=== PATIENT | male | born 1980 | race Caucasian/White ===

== ENCOUNTER 2021-10-17 09:27 | Outpatient (REF) | payer OTHER, SELFPAY | END 2021-10-17 09:28 | disposition home or self-care (01) | LOC: HO.HMGCLDS 09:27 | PROVIDERS: Visit Provider Internal Medicine | DX: Z20.822 Contact with and (suspected) exposure to COVID-19 (principal) | CPT/HCPCS: C9803; U0003; U0005 ==

== ENCOUNTER 2024-04-25 08:50 | Emergency (ER) | payer OTHER, SELFPAY ==
[2024-04-25 09:24] VITALS: BP 156/87; PULSE 103; RESP 18; TEMP 36.5; O2SAT 95; BMI 27.4
[2024-04-25 09:41] LABS: MANUAL DIFF FLAG NO
[2024-04-25 09:42] LABS: Basophils Percent Auto 0.2 % (0-2); Eosinophils Absolute Auto 0.1 X10*3/uL (0.0-0.4); Eosinophils Percent Auto 1.1 % (0-4); Hematocrit 35.3 % (42.0-52.0); Hemoglobin 12.3 g/dl (14.0-18.0); Imm Gran Abs Auto 0.05 X10*3/uL (0.00-0.03); Imm Gran Pct Auto 0.4 % (0.0-0.4); Lymphocytes Absolute Auto 1.2 X10*3/uL (1.2-4.9); Lymphocytes Percent Auto 9.6 % (20-40); Mean Corpuscular HGB Conc 34.8 g/dl (31.0-36.0); Mean Corpuscular Hemoglobin 29.1 pg (27.0-33.0); Mean Corpuscular Volume 83.6 fL (80.0-98.0); Mean Platelet Volume 9.1 fL (9.4-12.4); Monocytes Percent Auto 8.3 % (2-11); Neutrophils Percent Auto 80.4 % (45-73); Platelet Count 288 X10*3/uL (160-400); Red Blood Count 4.22 X10*6/uL (4.60-5.80); Red Cell Distribution Width 13.2 % (11.0-16.0); White Blood Count 12.4 X10*3/uL (4.8-10.8)
[2024-04-25 09:58] LABS: Lactic Acid 0.9 mmol/L (0.5-2.0)
[2024-04-25 10:12] LABS: Alanine Aminotransferase 9 U/L (0-40); Alkaline Phosphatase 66 U/L (39-117); Anion Gap 16 (12-20); Aspartate Amino Transferase 11 U/L (5-37); Bilirubin Total 0.7 mg/dL (0.0-1.0); Blood Urea Nitrogen 15 mg/dL (9-16); Calcium 9.3 mg/dL (8.4-10.2); Carbon Dioxide 29 mmol/L (22-29); Chloride 95 mmol/L (96-108); Creatinine Clr Calc Pharmacy 121.7; Estimated Glomerular Filt Rate > 60; Glucose Random 107 mg/dL (60-115); Potassium 2.7 mmol/L (3.3-5.1); Sodium 137 mmol/L (135-145); Total Protein 7.3 g/dL (6.5-8.0)
[2024-04-25] MEDS: Potassium Chloride ER 20 MEQ TAB.ER.PRT 60 MEQ PO (11:07)
[2024-04-25] MEDS: Tetracaine HCl/PF 0.5% Oph Sol 4 ML DROPS 3 DROP EYE-RIGHT (11:19)
[2024-04-25] MEDS: Fluorescein Sodium STRIP 1 STRIP EYE-LEFT (11:19)
[2024-04-25] MEDS: Lidocaine HCl 2 % MPF 5 ML VIAL INFILTRATI ×2 (11:19)
--- NOTE | 2024-04-25 11:24 | ED.GENADULT ---
HPI - General Adult General Chief complaint: Skin/Abscess/Foreign Body Stated complaint: armpit abscess ? Time Seen by Provider: 04/25/24 10:53 Source: patient Mode of arrival: ambulatory Limitations: no limitations History of Present Illness ED Provider: Héctor Pond PA-C HPI narrative: 42-year-old male history of recurrent abscesses and substance abuse presents to ED for right axilla pain. Patient states painful mass and erythema. Patient states have this before. Patient does not know why he has recurrent abscesses. Patient denies any IV drug injection to the site. Patient states he is clean. Patient states no chest pain or shortness of breath. Related Data Home Medications ?Medication ?Instructions ?Recorded ?Confirmed buprenorphine 2 mg-naloxone 0.5 mg 2 mg sublingual DAILY PRN 06/12/21 sublingual film buprenorphine 300 mg/1.5 mL mg subcut 06/12/21 solution,exten.rel.subcutaneous syringe (Sublocade) buprenorphine 4 mg-naloxone 1 mg 5 mg sublingual DAILY 06/12/21 sublingual film naloxone 4 mg/actuation nasal 1 spray intranasal ONCE PRN 06/12/21 spray (Narcan) Previous Rx's ?Medication ?Instructions ?Recorded cephalexin 500 mg capsule 500 mg PO TID #30 caps 06/12/21 meloxicam 15 mg tablet 15 mg PO DAILY #14 tabs 06/12/21 cephalexin 500 mg capsule 500 mg PO QID 7 days #28 caps 04/25/24 doxycycline hyclate 100 mg tablet 100 mg PO BID 7 days #14 tabs 04/25/24 ofloxacin 0.3 % eye drops See Rx Instructions ophthalmic 04/25/24 (eye) .COMPLEX #10 mL potassium chloride 20 mEq oral 20 meq PO DAILY 2 days #2 ea 04/25/24 packet Allergies Allergy/AdvReac Type Severity Reaction Status Date / Time No Known Allergies Allergy Verified 04/25/24 09:29 [No Known Allergies*] Review of Systems Review of Systems: Right axilla abscess Yes all other systems are reviewed and are negative PMFSH Social History Social History Advance Directives: No Advance Directives Information Provided: Yes Physical Exam ED Vital Signs: Vital Signs - 24 hr 04/25/24 09:24 04/25/24 14:18 Temperature 97.7 F 97.7 F Pulse Rate 103 H 103 H Respiratory Rate 18 18 Blood Pressure 156/87 H 156/87 H Pulse Oximetry 95 95 Oxygen Delivery Method Room Air Room Air BMI result Body Mass Index 27.4 Const General: cooperative, healthy appearing, comfortable, no acute distress, well developed, alert, awake and Physically active Orientation/consciousness: oriented to person, oriented to place, oriented to time and patient oriented x3 [facility] Head: Yes normal to inspection, Yes No palpable skull fracture present, Yes normocephalic and Yes atraumatic Eyes General: appearance normal, both eyes and all related structures Neck Neck: Yes normal visual inspection, Yes full ROM, Yes no lymphadenopathy, Yes no meningeal signs, Yes trachea midline, Yes supple, No anterior neck swelling and No tender Chest Other: erythematous and fluctuant. Resp Effort & Inspection: normal respiratory effort and able to speak in complete sentences Auscultation: clear to auscultation bilaterally Cardio Jugular venous distension: no JVD Heart sounds: S1 normal heart sound present and S2 normal heart sound present GI Inspection: Yes normal to inspection Palpation (GI): Soft to palpation, not firm, nontender, no guarding and not rigid General: No CVA tenderness and Yes no CVA tenderness Back/Spine/Pelvis Back: no CVA tenderness, No CVA tenderness and No back tenderness Skin General skin exam: no rashes or lesions noted, elasticity normal and turgor normal Neuro General: oriented to person, oriented to place, oriented to time, patient oriented x3, gait normal, tone normal, moves all extremities, Normal light touch and pain sensation, no meningeal signs, no focal motor deficits, CN's II-XI intact bilaterally and normal sensation to monofilament Extrem General: Yes normal to inspection, Yes full ROM and Yes capillary refill normal Psych Appearance: grossly normal, well kempt and not disheveled Medications Administered Discontinued Medications Generic Name Dose Route Start Last Admin Trade Name Freq PRN Reason Stop Dose Admin Fluorescein Sodium 1 strip 04/25/24 11:04/25/24 11:19 Fluorescein Sodium Strip EYE-LEFT 04/25/24 11:10 1 strip ONCE ONE Administration Lidocaine HCl 5 ml 04/25/24 11:04/25/24 11:19 Lidocaine Hcl 2 % Mpf 5 Ml Vial INFILTRATI 04/25/24 11:10 5 ml ONCE ONE Administration Lidocaine HCl 5 ml 04/25/24 11:04/25/24 11:19 Lidocaine Hcl 2 % Mpf 5 Ml Vial INFILTRATI 04/25/24 11:10 5 ml ONCE ONE Administration Lidocaine HCl 5 ml 04/25/24 12:03 04/25/24 12:08 Lidocaine Hcl 1 % Mpf 5 Ml Vial INFILTRATI 04/25/24 12:04 5 ml ONCE ONE Administration Lidocaine HCl 5 ml 04/25/24 12:03 04/25/24 12:08 Lidocaine Hcl 1 % Mpf 5 Ml Vial INFILTRATI 04/25/24 12:04 5 ml ONCE ONE Administration Potassium Chloride 60 meq 04/25/24 10:12 04/25/24 11:07 Potassium Chloride Er 20 Meq Tab.Er.Prt PO 04/25/24 10:13 60 meq ONCE ONE Administration Tetracaine HCl 3 drop 04/25/24 11:09 04/25/24 11:19 Tetracaine Hcl/Pf 0.5% Oph Keke 4 Ml Drops EYE-RIGHT 04/25/24 11:10 3 drop ONCE ONE Administration Medical Decision Making Medical Decision Making MDM Narrative: 42-year-old male with history of abscesses substance abuse who was cleaned on Suboxone presently having right axilla abscess clots seemed like hidradenitis suppurative. We will do a bedside ultrasound to see this pus to drain. Potassium 2.7 given oral potassium we will do repeat. 12:40pm: Bedside ultrasound shows multiple loculated abscesses. 15 mL lidocaine used for anesthesia. 3 abscesses needed to be drained. Size 11 blade used for incision. Large collection of abscesses was drained. Forcep was used to break up pockets. Normal saline was used to flush and Clean and irrigate abscesses. All 3 abscess incision areas were packed. Patient informed he will need to follow-up with surgery for re-evaluation for possible hidradenitis. 12:54pm; Patient states right eye redness with slight irritation from last night. Patient states he slept with his contacts in his right eye and woke up with right eye redness and some green discharge. Contacts were removed. Fluorescein dye tetracaine placed in eye. Wood's lamp negative for corneal abrasion or corneal ulcer. Righ eye eddie pressure is 7. left eye 7. Patient denies any visual complaints. Patient has glasses on which usually wear states no visual complaints. pending repeat potassium 1:33pm: Repeat potassium 2.8. Patient does not want to stay for IV potassium. Patient explained risks including . Patient still will sign out against medical advice. Patient prescribed potassium patient informed to follow-up with primary care provider for repeat potassium. patient uptodate on tetanus Differential Diagnosis Differential Diagnoses: The differential diagnosis associated with the presentation includes ( Hidradenitis suppurative number, cellulitis, abscess) Admission/Observation Consideration of admission/observation: Escalation of care including admission/observation considered Lab Data MDM Lab Attestation statement: I reviewed the patient's lab results. 04/25/24 09:35 04/25/24 13:03 Labs: Lab Results 04/25/24 04/25/24 Range/Units 09:35 13:03 WBC 12.4 H (4.8-10.8) X10*3/uL RBC 4.22 L (4.60-5.80) X10*6/uL Hgb 12.3 L (14.0-18.0) g/dl Hct 35.3 L (42.0-52.0) % MCV 83.6 (80.0-98.0) fL MCH 29.1 (27.0-33.0) pg MCHC 34.8 (31.0-36.0) g/dl RDW 13.2 (11.0-16.0) % Plt Count 288 (160-400) X10*3/uL MPV 9.1 L (9.4-12.4) fL Immature Gran % (Auto) 0.4 (0.0-0.4) % Neut % (Auto) 80.4 H (45-73) % Lymph % (Auto) 9.6 L (20-40) % Carlton % (Auto) 8.3 (2-11) % Eos % (Auto) 1.1 (0-4) % Baso % (Auto) 0.2 (0-2) % Lymph # (Auto) 1.2 (1.2-4.9) X10*3/uL Carlton # (Auto) 1.0 (0.1-1.2) X10*3/uL Eos # (Auto) 0.1 (0.0-0.4) X10*3/uL Baso # (Auto) 0.0 (0.0-0.2) X10*3/uL Abs Immat Gran (auto) 0.05 H (0.00-0.03) X10*3/uL Absolute Neuts (auto) 10.0 H (2.0-8.3) x10*3/uL Absolute Nucleated RBC 0.000 (0.0-0.012) X10*3/uL Nucleated RBC % (auto) 0.0 (0.0-0.2) /100WBC Sodium 137 (135-145) mmol/L Potassium 2.7 L* 2.8 L* (3.3-5.1) mmol/L Chloride 95 L (96-108) mmol/L Carbon Dioxide 29 (22-29) mmol/L Anion Gap 16 (12-20) BUN 15 (9-16) mg/dL Creatinine 0.79 (0.5-1.4) mg/dL Estim Creat Clear Calc 121.7 Estimated GFR > 60 Random Glucose 107 (60-115) mg/dL Lactic Acid 0.9 (0.5-2.0) mmol/L Calcium 9.3 (8.4-10.2) mg/dL Total Bilirubin 0.7 (0.0-1.0) mg/dL AST 11 (5-37) U/L ALT 9 (0-40) U/L Alkaline Phosphatase 66 (39-117) U/L Total Protein 7.3 (6.5-8.0) g/dL Albumin 4.0 (3.5-5.0) g/dL Independent Historian Clinical information obtained from an independent historian. History obtained from or confirmed by: Other (patient) External Record Review External record reviewed: Other (prior visits) Prescription Management I considered prescription management with: Antibiotic Discharge Plan Discharge Clinical Impression: Abscess, Hypokalemia, Hidradenitis suppurativa of right axilla, Acute bacterial conjunctivitis of right eye Patient Disposition: Left Against Medical Advice Instructions: Hypokalemia (ED), Abscess (ED), Conjunctivitis (ED), Hidradenitis Suppurativa (ED) Additional Instructions: return to the ED immediately for any seizure-like activity, weakness, dizziness, nausea, vomiting, fever, chills, upper extremity swelling, severe axilla pain, profuse drainage, or any other concerning symptoms. You will need follow-up with general surgeon for re-evaluation. Return to the ED 2 days for wound check and repacking. You were prescribed 2 doses of potassium chloride. Recommend follow-up with your primary care tomorrow for repeat blood work for your potassium. your potassium level was 2.8 in the ER. Prescriptions: New ofloxacin 0.3 % drops See Rx Instructions .ROUTE .COMPLEX Qty: 10 0RF Rx Instructions: put 1-2 drps into affected eye(s) every 2-4 h x 2 days, then 1-2 drps 4 times/day days 3-7 cephalexin 500 mg capsule 500 mg PO QID 7 Days Qty: 28 0RF doxycycline hyclate 100 mg tablet 100 mg PO BID 7 Days Qty: 14 0RF potassium chloride 20 mEq packet 20 meq PO DAILY 2 Days Qty: 2 0RF No Action Sublocade 300 mg/1.5 mL solution, extended rel syringe subcut buprenorphine-naloxone 2-0.5 mg film 2 mg sublingual DAILY PRN Narcan 4 mg/actuation spray,non-aerosol 1 spray intranasal ONCE PRN buprenorphine-naloxone 4-1 mg film 5 mg sublingual DAILY meloxicam 15 mg tablet 15 mg PO DAILY Qty: 14 0RF cephalexin 500 mg capsule 500 mg PO TID Qty: 30 0RF [place] [facility] [place] Group] ( hidradenitis suppurative) Stand Alone Forms: Against Medical Advice Interventions: ED Discharge Assessment Last Done: 04/25/24 14:18 Discharge Date/Time: 04/25/24 14:18 Print Language: [place]an
[2024-04-25] MEDS: Lidocaine HCl 1 % MPF 5 ML VIAL INFILTRATI ×2 (12:08)
[2024-04-25 13:29] LABS: Potassium 2.8 mmol/L (3.3-5.1)
[2024-04-25 14:18] VITALS: BP 156/87; PULSE 103; RESP 18; TEMP 36.5; O2SAT 95
== END 2024-04-25 14:18 | disposition left against medical advice (07) ==
PROVIDERS: Physician Assistant; Emergency Provider Emergency Medicine
DX: L73.2 Hidradenitis suppurativa (principal); H10.31 Unspecified acute conjunctivitis, right eye; E87.6 Hypokalemia; Z79.899 Other long term (current) drug therapy
CPT/HCPCS: 10060; 36415; 80053; 83605; 84132; 85025; 87070; 87077; 87186; 87205; 99282; 99284